=== PATIENT | female | born 1960 | race Caucasian/White ===

== ENCOUNTER 2024-03-20 11:43 | Observation (INO) | payer BC ==
[~2024-03-20 11:43] MED LIST: AMIODARONE 50 MG/ML 3 ML VIAL IV ONE; AMIODARONE 50 MG/ML 9 ML VIAL IV ONE; DEXTROSE 5% IN WATER 100 ML BAG IV ONE; DEXTROSE 5% IN WATER 250 ML BAG ONE; DILTIAZEM 125 MG/25 ML VIAL IV ONE; DILTIAZEM DRIP BOLUS FROM BAG 1 MG SOLN IV ONE; SODIUM CHLORIDE 0.9% 100 ML BAG IV ONE
[2024-03-20] MEDS ORDERED: ASPIRIN 81 MG ONE (12:47)
[2024-03-20] MEDS ORDERED: ACETAMINOPHEN TAB 500 MG TAB ONE ×2 (12:47→20:04)
[2024-03-20] MEDS ORDERED: DILTIAZEM 125 MG/25 ML VIAL IV ONE (13:45)
[2024-03-20] MEDS ORDERED: SODIUM CHLORIDE 0.9% 1,000 ML BAG ONE (13:45)
[2024-03-20] MEDS ORDERED: SODIUM CHLORIDE 0.9% 100 ML BAG ONE (13:45)
[2024-03-20] MEDS ORDERED: ONDANSETRON 4 MG/2 ML VIAL ONE (18:26)
[2024-03-20] MEDS ORDERED: PANTOPRAZOLE 40 MG/10 ML VIAL ONE (18:27)
[2024-03-20] MEDS ORDERED: IBUPROFEN 400 MG TAB ONE (20:05)
[2024-03-20] MEDS ORDERED: cefTRIAXone IN SWFI 1,000 MG/10 ML SYRINGE IVP ONE (20:05)
[2024-03-20] MEDS ORDERED: HEPARIN SOD,PORK IN 0.45% NACL 250 ML IV ONE (23:39)
[2024-03-20] MEDS ORDERED: HEPARIN SODIUM 1,000 UN/ML (10ML VL) ONE (23:39)
[2024-03-20] MEDS ORDERED: ATORVASTATIN 40 MG TAB ONE (23:39)
[2024-03-20] MEDS ORDERED: LOSARTAN 25 MG TAB ONE (23:43)
[2024-03-20] MEDS ORDERED: buPROPion SR 150 MG TABLET.ER PO ONE (23:44)
[2024-03-20] MEDS ORDERED: SERTRALINE 100 MG TAB ONE (23:44)
[2024-03-20] MEDS ORDERED: ALPRAZolam 0.25 MG TAB ONE (23:44)
[2024-03-21] MEDS ORDERED: HEPARIN SODIUM 1,000 UN/ML (10ML VL) ONE (08:46)
[2024-03-21] MEDS ORDERED: LOSARTAN 25 MG TAB ONE ×2 (09:15→20:57)
[2024-03-21] MEDS ORDERED: PANTOPRAZOLE 40 MG TABLET PO ONE ×2 (09:15→20:57)
[2024-03-21] MEDS ORDERED: SERTRALINE 100 MG TAB ONE (09:15)
[2024-03-21] MEDS ORDERED: FUROSEMIDE 40 MG TAB ONE (09:16)
[2024-03-21] MEDS ORDERED: IBUPROFEN 400 MG TAB ONE ×2 (09:29→14:00)
[2024-03-21] MEDS ORDERED: ACETAMINOPHEN TAB 325 MG TAB ONE (09:31)
[2024-03-21] MEDS ORDERED: APIXABAN 5 MG TAB ONE ×2 (12:55→20:58)
[2024-03-21] MEDS ORDERED: ASPIRIN 81 MG ONE (20:57)
[2024-03-21] MEDS ORDERED: ALPRAZolam 0.25 MG TAB ONE (20:57)
[2024-03-21] MEDS ORDERED: ATORVASTATIN 40 MG TAB ONE (20:58)
[2024-03-21] MEDS ORDERED: buPROPion XL 150 MG TAB.ER.24H PO ONE (22:00)
[2024-03-22] MEDS ORDERED: DEXTROSE 5% IN WATER 250 ML BAG ONE (08:00)
[2024-03-22] MEDS ORDERED: AMIODARONE 50 MG/ML 9 ML VIAL IV ONE (08:00)
[2024-03-22] MEDS ORDERED: NYSTATIN 100,000 UNIT/GM POWD 15 GM TOPICAL ONE (08:00)
[2024-03-22] MEDS ORDERED: buPROPion XL 150 MG TAB.ER.24H PO ONE ×2 (08:00→22:00)
[2024-03-22] MEDS ORDERED: LOSARTAN 25 MG TAB ONE ×2 (10:04→21:33)
[2024-03-22] MEDS ORDERED: PANTOPRAZOLE 40 MG TABLET PO ONE ×2 (10:05→21:33)
[2024-03-22] MEDS ORDERED: DAPAGLIFLOZIN PROPANEDIOL 10 MG TABLET ONE (10:05)
[2024-03-22] MEDS ORDERED: LORATADINE 10 MG TAB ONE (10:05)
[2024-03-22] MEDS ORDERED: APIXABAN 5 MG TAB ONE ×2 (10:05→21:34)
[2024-03-22] MEDS ORDERED: FUROSEMIDE 10 MG/ML 4 ML VIAL ONE (10:05)
[2024-03-22] MEDS ORDERED: SERTRALINE 100 MG TAB ONE (10:05)
[2024-03-22] MEDS ORDERED: METOPROLOL TARTRATE 50 MG TAB ONE ×2 (12:26→21:33)
[2024-03-22] MEDS ORDERED: ASPIRIN 81 MG ONE (21:33)
[2024-03-22] MEDS ORDERED: ALPRAZolam 0.25 MG TAB ONE (21:33)
[2024-03-22] MEDS ORDERED: ATORVASTATIN 40 MG TAB ONE (21:34)
[2024-03-23] MEDS ORDERED: buPROPion XL 150 MG TAB.ER.24H PO ONE (08:00)
[2024-03-23] MEDS ORDERED: PANTOPRAZOLE 40 MG/10 ML VIAL ONE (08:17)
[2024-03-23] MEDS ORDERED: SERTRALINE 100 MG TAB ONE (08:18)
[2024-03-23] MEDS ORDERED: METOPROLOL TARTRATE 50 MG TAB ONE (08:18)
[2024-03-23] MEDS ORDERED: DAPAGLIFLOZIN PROPANEDIOL 10 MG TABLET ONE (08:18)
[2024-03-23] MEDS ORDERED: LOSARTAN 25 MG TAB ONE (08:18)
[2024-03-23] MEDS ORDERED: FUROSEMIDE 10 MG/ML 4 ML VIAL ONE (08:18)
[2024-03-23] MEDS ORDERED: LORATADINE 10 MG TAB ONE (08:18)
[2024-03-23] MEDS ORDERED: APIXABAN 5 MG TAB ONE (08:19)
--- NOTE | 2024-04-19 15:14 | CA ---
Transthoracic Echo Report Name: Claire Cast Age: 63 Gender: O : 1960 Exam Date: 03/22/2024 08:33 Exam Location: [facility] Ht (in): 65 Wt (lb): 317 Ordering Physician: Attending/Referring Phys: Trash Collector Graciela Morales RDCS Procedure CPT: Indications: Cardiac Hx: Technical Quality: Poor Contrast 1: Total Dose (mL): Contrast 2: Total Dose (mL): MEASUREMENTS (Male / Female) Normal Values 2D ECHO LV Diastolic Diameter PLAX 5.1 cm 4.2 - 5.9 / 3.9 - 5.3 cm LV Systolic Diameter PLAX 2.9 cm IVS Diastolic Thickness 1.5 cm 0.6 - 1.0 / 0.6 - 0.9 cm LVPW Diastolic Thickness 1.4 cm 0.6 - 1.0 / 0.6 - 0.9 cm LV Relative Wall Thickness 0.6 RV Internal Dim ED PLAX 3.9 cm LA Systolic Diameter LX 5.3 cm 3.0 - 4.0 / 2.7 - 3.8 cm LV Diastolic Volume MOD BP 86.8 cm??? 67 - 155 / 56 - 104 cm??? LV Systolic Volume MOD BP 30.9 cm??? 22 - 58 / 19 - 49 cm??? LV Ejection Fraction MOD BP 64.4 % >= 55 % LV Cardiac Index MOD BP 1808.8 cm???/min???m??? LV Diastolic Volume MOD 4C 79.2 cm??? LV Systolic Volume MOD 4C 27.7 cm??? LV Ejection Fraction MOD 4C 65.1 % LV Cardiac Index MOD 4C 1668.9 cm???/min???m??? LV Diastolic Length 4C 7.3 cm LV Systolic Length 4C 6.5 cm LV Diastolic Volume MOD 2C 91.6 cm??? LV Systolic Volume MOD 2C 35.1 cm??? LV Ejection Fraction MOD 2C 61.7 % LV Cardiac Index MOD 2C 1827.9 cm???/min???m??? LV Diastolic Length 2C 7.7 cm LV Systolic Length 2C 6.4 cm M-MODE Aortic Root Diameter MM 3.5 cm LA Systolic Diameter MM 5.2 cm LA Ao Ratio MM 1.5 AV Cusp Separation MM 2.1 cm DOPPLER Mitral E Point Velocity 102.1 cm/s Mitral A Point Velocity 76.3 cm/s Mitral E to A Ratio 1.3 MV Deceleration Time 248.3 ms MV E' Velocity 7.1 cm/s Mitral E to MV E' Ratio 14.3 TR Peak Velocity 240.6 cm/s TR Peak Gradient 23.2 mmHg FINDINGS Left Ventricle Left ventricular ejection fraction is estimated at 55-60 %. Moderately increased septal wall thickness.Normal left ventricular systolic function with no obvious regional wall motion abnormalities. Right Ventricle Normal right ventricular size and function. Right ventricular systolic pressure within normal limits. Right Atrium Normal right atrial size. Left Atrium Mild left atrial dilatation. Mitral Valve Structurally normal mitral valve. Mild mitral regurgitation. No mitral stenosis. Calcification of the leaflets Aortic Valve Trileaflet aortic valve. No aortic stenosis. No aortic regurgitation.aortic valve sclerosis. Tricuspid Valve Structurally normal tricuspid valve. Mild tricuspid regurgitation. No tricuspid stenosis. Pulmonic Valve Structurally normal pulmonic valve. Trace pulmonic regurgitation. No pulmonic stenosis. Pericardium Echo free space anterior to the right ventricle likely represents a fat pad. Aorta Aorta at upper limits of normal. CONCLUSIONS Normal left ventricular size and systolic function with left ventricular hypertrophy Mild mitral and tricuspid regurgitation with no evidence of pulmonary hypertension Previewed by: Dr. Awais Spicer MD (Electronically Signed) Final Date: 22 March 2024 11:28
--- NOTE | 2024-04-21 06:30 | XR ---
Patient Claire Cast ID [id number] Order # EXAMINATION TYPE: XR chest 2V DATE OF EXAM: 03/20/2024 COMPARISON: No comparison available on downtime PACS. INDICATION: Chest pain open-heart TECHNIQUE: Frontal and lateral views of the chest are obtained. FINDINGS: The heart size is normal. The pulmonary vasculature is normal. Atelectasis at the left base. 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 IMPRESSION: 1. Mild plate atelectasis left lung base
== END 2024-03-23 20:24 | disposition home or self-care (01) ==
LOC: UNDOADMIN 11:43 → 3SCARD 11:43 → INTOOBSV 14:40 → UNDODISIN 03-23 16:47 → 3SCARD 03-23 18:46 → UNDOADMIN 03-23 18:46 → UNDODISIN 03-23 18:46
PROVIDERS: ADMIT Hospitalist; ATTEND Hospitalist
DX: I48.0 Paroxysmal atrial fibrillation (principal); R07.9 Chest pain, unspecified; I25.10 Atherosclerotic heart disease of native coronary artery without angina pectoris; I11.0 Hypertensive heart disease with heart failure; I50.9 Heart failure, unspecified; G47.33 Obstructive sleep apnea (adult) (pediatric); Z95.1 Presence of aortocoronary bypass graft; Z79.82 Long term (current) use of aspirin; Z79.899 Other long term (current) drug therapy
CPT/HCPCS: 96375 ×2; 96374; 99291; 93005; 93306; 87040; 87086; 84145; 71046; G0378 ×4; J1940 ×2; J0282 ×3; S0106; J2405; J0696; J1644 ×3; J2470 ×2